=== PATIENT | female | born 1965 | race African-American/Black ===

== ENCOUNTER 2016-08-01 18:22 | Emergency (ER) | payer BC ==
[~2016-08-01] VITALS: Ht 165.1 cm; Wt 92.0 kg
[~2016-08-01 18:22] MED LIST: AMLO10TA80; AMLODIPINE; BIDIL; FERR1TAB51; NEBI5TAB3 PO
[2016-08-01 19:14] LABS: BASOPHILS % 0.8 % (0.0-2.0); DIFFERENTIAL COMMENT 0; HEMATOCRIT. 37.6 % (36.0-48.0); HEMOGLOBIN. 12.1 g/dL (12.0-16.0); LYMPHOCYTES % 33.8 % (20.0-50.0); MEAN CORPUSCULAR HEMOGLOBIN 24.8 pg (28.0-32.0); MEAN CORPUSCULAR HGB CONC 32.2 g/dL (31.0-37.0); MEAN CORPUSCULAR VOLUME 76.9 fL (81.0-99.0); MEAN PLATELET VOLUME 9.1 fl (7.4-10.4); MONOCYTES % 8.1 % (2.0-8.0); NEUTROPHILS % 56.3 % (40.0-76.0); PLATELET 266 x1000/uL (130-400); RED BLOOD CELL COUNT 4.89 mill/uL (4.2-5.4); RED CELL DISTRIBUTION WIDTH 16.7 % (11.6-14.6); WHITE BLOOD COUNT 7.5 x1000/uL (4.5-11.0)
[2016-08-01 19:19] LABS: CHLORIDE 101 mEq/L (98-107)
[2016-08-01 19:23] LABS: D-DIMER 0.3 mg/L FEU (<0.50); INR 1.2
[2016-08-01 19:25] LABS: ALBUMIN 4.2 g/dL (3.4-5.0); ANION GAP 15; CALCIUM 9.4 mg/dL (8.5-10.1); CARBON DIOXIDE 24 mEq/L (21-32); INDEX HEMOLYSI 1 (1-3); INDEX ICTERIC 1 (1-4); INDEX LIPEMIC 1 (1-3); UREA NITROGEN BLOOD 14 mg/dL (7-21)
[2016-08-01 19:30] LABS: ALANINE AMINOTRANSFERASE 19 IU/L (13-61); eGFR > 60 mL/min (>60)
[2016-08-01 19:31] LABS: NT PRO B-TYPE NATRIURETIC PEP 15 pg/mL (5-125); TROPONIN I 0.06 ng/mL (0.00-0.04)
[2016-08-01] MEDS ORDERED: POTASSIUM CHLORIDE 40MEQ/30ML UDC PO ONE (20:30)
[2016-08-01] MEDS ORDERED: POTASSIUM CHLORIDE 20 MEQ/PACKET PO SCH (21:45)
[2016-08-01 21:49] VITALS: BP 128/74
== END 2016-08-02 01:52 | disposition home or self-care (01) ==
LOC: ER 08-02 01:23
DX: E87.6 Hypokalemia (principal); R07.9 Chest pain, unspecified; I10 Essential (primary) hypertension; E78.00 Pure hypercholesterolemia, unspecified; D64.9 Anemia, unspecified
CPT/HCPCS: 36415; 71010; 80053; 83880; 84484; 85025; 85379; 85610; 99285; Z7610

== ENCOUNTER → 2016-08-31 | Outpatient (CLI) | payer BC ==
[2016-08-31 07:03] LABS: CLARITY URINE CLEAR (CLEAR); COLOR URINE YELLOW (YELLOW); GLUCOSE URINE NEGATIVE (NEGATIVE); KETONES URINE NEGATIVE (NEGATIVE); LEUKOCYTE ESTERASE URINE NEGATIVE (NEGATIVE); NITRITE URINE NEGATIVE (NEGATIVE); OCCULT BLOOD URINE NEGATIVE (NEGATIVE); PH URINE 7.5 (4.5-8.0); PROTEIN URINE NEGATIVE (NEGATIVE); SPECIFIC GRAVITY URINE 1.012 (1.005-1.030); UROBILINOGEN URINE 0.2 E.U./dL (0.2-1.0)
[2016-08-31 07:14] LABS: BASOPHILS % 0.3 % (0.0-2.0); DIFFERENTIAL COMMENT 0; EOSINOPHILS % 2.8 % (0.0-5.0); HEMATOCRIT. 34.3 % (36.0-48.0); LYMPHOCYTES % 27.5 % (20.0-50.0); MEAN CORPUSCULAR HEMOGLOBIN 24.4 pg (28.0-32.0); MEAN CORPUSCULAR HGB CONC 31.9 g/dL (31.0-37.0); MEAN CORPUSCULAR VOLUME 76.2 fL (81.0-99.0); MEAN PLATELET VOLUME 9.2 fl (7.4-10.4); MONOCYTES % 9.2 % (2.0-8.0); NEUTROPHILS % 60.2 % (40.0-76.0); PLATELET 231 x1000/uL (130-400); WHITE BLOOD COUNT 8.4 x1000/uL (4.5-11.0)
[2016-08-31 07:35] LABS: CALCIUM 9.1 mg/dL (8.5-10.1); CHLORIDE 105 mEq/L (98-107); INDEX HEMOLYSI 1 (1-3); INDEX ICTERIC 1 (1-4); INDEX LIPEMIC 1 (1-3); UREA NITROGEN BLOOD 11 mg/dL (7-21)
[2016-08-31 07:45] LABS: ALANINE AMINOTRANSFERASE 20 IU/L (13-61); ALBUMIN 3.9 g/dL (3.4-5.0); ANION GAP 12; CARBON DIOXIDE 27 mEq/L (21-32); HDL CHOLESTEROL 69 mg/dL (40-59); IRON 53 ug/dL (50-175); LDL CHOLESTEROL 165 mg/dL (5-100); T4 FREE 0.74 ng/dL (0.76-1.46); TOTAL IRON BINDING CAPACITY 421 ug/dL (250-450); TRIGLYCERIDE 202 mg/dL (0-150); eGFR > 60 mL/min (>60)
[2016-08-31 08:10] LABS: FOLIC ACID (FOLATE) SERUM 8.6 ng/mL (>5.38)
[2016-09-02 09:09] LABS: VITAMIN D 25-OH 14.7 ng/mL (30.0-100.0)
[2016-09-02 13:06] LABS: A/G RATIO 1.2 (0.7-1.7); ALBUMIN 4.1 g/dL (2.9-4.4); ALPHA-1-GLOBULIN 0.2 g/dL (0.0-0.4); ALPHA-2-GLOBULIN 0.7 g/dL (0.4-1.0); BETA GLOBULIN 1.3 g/dL (0.7-1.3); GAMMA GLOBULINS 1.2 g/dL (0.4-1.8); GLOBULIN TOTAL 3.5 g/dL (2.2-3.9); M-SPIKE Not Observed g/dL (Not Observed); TOTAL PROTEIN SERUM 7.6 g/dL (6.0-8.5)
[2016-09-02 14:20] LABS: MICROALBUMIN RANDOM URINE 13.7 ug/mL (Not Estab.); MICROALBUMIN/CREATININE RATIO 16.5 mg/g creat (0.0-30.0)
[2016-09-09 13:40] LABS: METHYLMALONIC ACID 91 nmol/L (0-378)
== END | disposition home or self-care (01) ==
LOC: LAB 05:48
PROVIDERS: ATTEND Internal Medicine Endocrinology, Diabetes & Metabolism
DX: I10 Essential (primary) hypertension (principal); D64.9 Anemia, unspecified; E55.9 Vitamin D deficiency, unspecified; E66.9 Obesity, unspecified; R73.9 Hyperglycemia, unspecified
CPT/HCPCS: 36415; 80053; 80061; 81003; 82043; 82306; 82570; 82607; 82728; 82746; 83036; 83540; 83550; 83921; 84155; 84165; 84439; 84443; 85025; 87086

== ENCOUNTER → 2016-09-09 | Outpatient (CLI) | payer BC ==
[2016-09-10 09:08] LABS: FOLICLE STIMULATING HORMONE 14.9 mIU/mL (.); LUTEINIZING HORMONE 8.1 mIU/mL (.)
[2016-09-10 15:07] LABS: *CREATININE RANDOM URINE 154.2 mg/dL (Not Estab.); MICROALBUMIN RANDOM URINE 20.9 ug/mL (Not Estab.); MICROALBUMIN/CREATININE RATIO 13.6 mg/g creat (0.0-30.0)
[2016-09-11 04:16] LABS: HUMAN GROWTH HORMONE < 0.1 ng/mL (0.0-10.0)
== END | disposition home or self-care (01) ==
LOC: MRI 09:44
PROVIDERS: ATTEND Internal Medicine Endocrinology, Diabetes & Metabolism
DX: G31.9 Degenerative disease of nervous system, unspecified (principal); R90.82 White matter disease, unspecified
CPT/HCPCS: 36415; 70553; 82043; 82533; 82570; 83001; 83002; 83003; 84145

== ENCOUNTER → 2016-12-03 | Outpatient (CLI) | payer BC ==
[2016-12-03 07:40] LABS: BASOPHILS % 0.2 % (0.0-2.0); EOSINOPHILS % 2.2 % (0.0-5.0); HEMATOCRIT. 31.1 % (36.0-48.0); HEMOGLOBIN. 10.1 g/dL (12.0-16.0); LYMPHOCYTES % 26.5 % (20.0-50.0); MEAN CORPUSCULAR HEMOGLOBIN 26.1 pg (28.0-32.0); MEAN CORPUSCULAR VOLUME 80.3 fL (81.0-99.0); MEAN PLATELET VOLUME 9.4 fl (7.4-10.4); MONOCYTES % 8.7 % (2.0-8.0); NEUTROPHILS % 62.4 % (40.0-76.0); PLATELET 229 x1000/uL (130-400); RED BLOOD CELL COUNT 3.87 mill/uL (4.2-5.4); RED CELL DISTRIBUTION WIDTH 16.1 % (11.6-14.6)
[2016-12-03 08:08] LABS: CARBON DIOXIDE 27 mEq/L (21-32); CHLORIDE 106 mEq/L (98-107); HDL CHOLESTEROL 53 mg/dL (40-59); LDL CHOLESTEROL 151 mg/dL (5-100); T4 FREE 0.86 ng/dL (0.76-1.46)
[2016-12-05 05:21] LABS: ALBUMIN 3.4 g/dL (2.9-4.4); ALPHA-1-GLOBULIN 0.2 g/dL (0.0-0.4); ALPHA-2-GLOBULIN 0.7 g/dL (0.4-1.0); BETA GLOBULIN 1.4 g/dL (0.7-1.3); GAMMA GLOBULINS 1.2 g/dL (0.4-1.8); GLOBULIN TOTAL 3.5 g/dL (2.2-3.9); M-SPIKE Not Observed g/dL (Not Observed); TOTAL PROTEIN SERUM 6.9 g/dL (6.0-8.5)
== END | disposition home or self-care (01) ==
LOC: LAB 06:44
PROVIDERS: ATTEND Internal Medicine Endocrinology, Diabetes & Metabolism
DX: I10 Essential (primary) hypertension (principal); E78.5 Hyperlipidemia, unspecified; D64.9 Anemia, unspecified; R73.9 Hyperglycemia, unspecified
CPT/HCPCS: 36415; 80053; 80061; 83036; 84155; 84165; 84439; 84443; 85025